=== PATIENT | male | born 1985 | race African-American/Black ===

== ENCOUNTER 2024-06-02 12:11 | Emergency (ER) | payer OTHER, SELFPAY ==
[2024-06-02 12:13] VITALS: BP 135/80; PULSE 83; RESP 18; TEMP 37; O2SAT 98; BMI 37.7
--- NOTE | 2024-06-02 12:19 | ED.SKABFB ---
HPI - Skin/Abscess/Foreign Bdy General Chief complaint: Skin/Abscess/Foreign Body Stated complaint: R leg pain abscess Time Seen by Provider: 06/02/24 14:06 Related Data Previous Rx's ?Medication ?Instructions ?Recorded amoxicillin 875 mg-potassium 1 tab PO BID #14 tabs 06/02/24 clavulanate 125 mg tablet Allergies Allergy/AdvReac Type Severity Reaction Status Date / Time aspirin [ASA] Allergy Unknown Verified 06/02/24 12:19 PMFSH Social History Social History Smoked in Last 30 Days: No Use of substances other than those prescribed or required for medical reasons: No Advance Directives: No Advance Directives Information Provided: Yes Do you have a plan to hurt others: No Plan Physical Exam Vital Signs: Vital Signs: Last Vital Signs Temp 98.6 F 06/02/24 14:31 Pulse 85 06/02/24 14:31 Resp 18 06/02/24 14:31 BP 142/77 H 06/02/24 14:31 Pulse Ox 97 06/02/24 14:31 O2 Del Method Room Air 06/02/24 14:31 BMI result Body Mass Index 37.7 Course Course Course Narrative: This is a Rapid Medical Examination (RME) performed by Diane Almanza PA-C in triage. Full HPI, ROS, assessment and treatment plan per primary provider in the Main ED. Hx: 38 yo male hx perianal abscess here for suspected recurrence of abscess x6 days. had abscess drained approx 5-6 yrs ago w/ improvement. reports the abscess returned 6 days ago. unsure if it is draining. no fever, chills. PE/vitals: uncomfortable appearing. difficulty sitting down d/t pain. area not examined d/t privacy concerns. Plan: screening labs, further eval in back Discharge Plan Discharge Clinical Impression: Abscess, rectum Patient Disposition: Home, Self-Care Instructions: Rectal Abscess (ED) Additional Instructions: WE HAVE CALLED A PRESCRIPTION FOR YOU FOR ANTIBIOTIC TO THE PHARMACY IN [facility]. FOLLOW-UP TOMORROW WITH DR. NIETO CALL THE OFFICE TOMORROW MORNING HE WILL SEE YOU TOMORROW Prescriptions: New amoxicillin-pot clavulanate 875-125 mg tablet 1 tab PO BID Qty: 14 0RF Referrals: Pedro Nieto MD [Physician] - 1 day Print Language: Citizen [place]
--- NOTE | 2024-06-02 14:14 | ED_ITS ---
HPI - General Adult General Chief complaint: Skin/Abscess/Foreign Body Stated complaint: R leg pain abscess Time Seen by Provider: 06/02/24 14:06 Source: patient Mode of arrival: ambulatory History of Present Illness HPI narrative: This is a 38 years old patient presented to the emergency department complaining of abscess in the rectal area. Onset (ago): day(s) (4) Location: buttocks Radiation: non-radiation Severity: moderate Quality: burning Pain Consistency: constant Relieving factors: none Exacerbating factors: none Related Data Previous Rx's ?Medication ?Instructions ?Recorded amoxicillin 875 mg-potassium 1 tab PO BID #14 tabs 06/02/24 clavulanate 125 mg tablet Allergies Allergy/AdvReac Type Severity Reaction Status Date / Time aspirin [ASA] Allergy Unknown Verified 06/02/24 12:19 Review of Systems Constitutional: Constitutional: Reports no additional constitutional complaints Cardiovascular: Cardiovascular: Reports no additional cardiovascular complaints Gastrointestinal: Gastrointestinal: Reports no additional gastrointestinal complaints PMFSH Social History Social History Smoked in Last 30 Days: No Use of substances other than those prescribed or required for medical reasons: No Advance Directives: No Advance Directives Information Provided: Yes Do you have a plan to hurt others: No Plan Physical Exam ED Vital Signs: Vital Signs - 24 hr 06/02/24 12:13 06/02/24 14:31 Temperature 98.6 F 98.6 F Pulse Rate 83 85 Respiratory Rate 18 18 Blood Pressure 135/80 142/77 H Pulse Oximetry 98 97 Oxygen Delivery Method Room Air Room Air BMI result Body Mass Index 37.7 Not acute distress Const General: cooperative Nutritional Appearance: average body habitus Orientation/consciousness: patient oriented x3 Limitations: no limitations HENMT Head: Yes normal to inspection Face and sinus: Yes normal facial exam Mouth: Normal oral and palatal mucosa present Throat: Yes posterior oropharynx normal Neck Neck: Yes normal visual inspection Chest Chest palpation & inspection: normal inspection of the chest Resp Effort & Inspection: normal respiratory effort Cardio Jugular venous distension: no JVD Rate: regular rate Rhythm: regular rhythm GI Other: soft non tender Percussion: Yes normal to percussion Rectal Exam - Male: Yes other (There is an area of tenderness and fluctuance in right perianal area) Skin General skin exam: no rashes or lesions noted Neuro General: patient oriented x3 Course Reevaluation(s) Reevaluation #1: I&D PERFORMED BY ME UNDER LOCAL ANESTHESIA LARGE AMOUNT OF PUS OBTAINED Time: 15:07 Reevaluation #2: I DISCUSSED THE CASE WITH THE SURGEON DR. NIETO WE WILL SEE THE PATIENT TOMORROW FOR FOLLOW-UP Time: 15:38 Procedures Abscess I/D Site: other (RECTAL AREA) Side (if applicable): right Local Anesthetic: lidocaine 1% Amount of anesthesia used (mL): 5 Technique: incised with blade and ultrasound guided Amount of fluid expressed (mL): 40 Sent for culture/gram staining?: Yes Irrigation: Yes Packing used?: iodoform Complications: other (NONE) Medical Decision Making Medical Decision Making MDM Narrative: PATIENT PRESENTED WITH A PERIRECTAL ABSCESS DISCUSSED I AND D PATIENT WANTS TO WILL ADD WITH THE I AND D RISKS AND BENEFITS DISCUSSED CONSENT FOR THE I AND D Differential Diagnosis Differential Diagnoses: The differential diagnosis associated with the presentation includes RECTAL ABSCESS/CYST Consult Healthcare Provider Management of the patient was discussed with: Prepared Foods Supervisor DR NIETO Prescription Management I considered prescription management with: Antibiotic Discharge Plan Discharge Clinical Impression: Abscess, rectum Patient Disposition: Home, Self-Care Instructions: Rectal Abscess (ED) Additional Instructions: WE HAVE CALLED A PRESCRIPTION FOR YOU FOR ANTIBIOTIC TO THE PHARMACY IN [facility]. FOLLOW-UP TOMORROW WITH DR. NIETO CALL THE OFFICE TOMORROW MORNING HE WILL SEE YOU TOMORROW Prescriptions: New amoxicillin-pot clavulanate 875-125 mg tablet 1 tab PO BID Qty: 14 0RF Referrals: Pedro Nieto MD [Physician] - 1 day Print Language: Moz[place]ican
[2024-06-02 14:31] VITALS: BP 142/77; PULSE 85; RESP 18; TEMP 37; O2SAT 97
--- NOTE | 2024-06-02 14:41 | PC.NURSE ---
Medication given to MD at bedside. MD to give medication during procedure.
--- NOTE | 2024-06-02 14:52 | PC.NURSE ---
Per d, pt. does not need labs that were previously ordered.
--- NOTE | 2024-06-02 15:44 | PC.NURSE ---
Dressing applied to pt's bottom per MD.
[2024-06-02] MEDS: Lidocaine HCl 1 % MPF 5 ML VIAL INFILTRATI (15:51)
[2024-06-02 15:52] VITALS: BP 142/77; PULSE 88; RESP 18; TEMP 37; O2SAT 97
[2024-06-02 15:54] LABS: MANUAL DIFF FLAG NO
[2024-06-02 16:10] LABS: Basophils Percent Auto 0.3 % (0-2); Eosinophils Absolute Auto 0.1 X10*3/uL (0.0-0.4); Eosinophils Percent Auto 1.1 % (0-4); Hematocrit 36.7 % (42.0-52.0); Hemoglobin 12.2 g/dl (14.0-18.0); Imm Gran Abs Auto 0.04 X10*3/uL (0.00-0.03); Imm Gran Pct Auto 0.4 % (0.0-0.4); Lymphocytes Absolute Auto 2.5 X10*3/uL (1.2-4.9); Lymphocytes Percent Auto 21.9 % (20-40); Mean Corpuscular HGB Conc 33.2 g/dl (31.0-36.0); Mean Corpuscular Hemoglobin 27.9 pg (27.0-33.0); Mean Corpuscular Volume 83.8 fL (80.0-98.0); Mean Platelet Volume 9.3 fL (9.4-12.4); Monocytes Percent Auto 8.5 % (2-11); Neutrophils Absolute Auto 7.7 x10*3/uL (2.0-8.3); Neutrophils Percent Auto 67.8 % (45-73); Platelet Count 354 X10*3/uL (160-400); Red Blood Count 4.38 X10*6/uL (4.60-5.80); Red Cell Distribution Width 12.7 % (11.0-16.0); White Blood Count 11.3 X10*3/uL (4.8-10.8)
[2024-06-02 16:11] LABS: Anion Gap 12 (12-20); Blood Urea Nitrogen 13 mg/dL (9-16); Calcium 9.1 mg/dL (8.4-10.2); Carbon Dioxide 24 mmol/L (22-29); Chloride 106 mmol/L (96-108); Creatinine Clr Calc Pharmacy 184.2; Estimated Glomerular Filt Rate > 60; Glucose Random 86 mg/dL (60-115); Potassium 3.9 mmol/L (3.3-5.1); Sodium 138 mmol/L (135-145)
== END 2024-06-02 15:54 | disposition home or self-care (01) ==
PROVIDERS: Physician Assistant Medical; Emergency Provider Emergency Medicine
DX: K61.1 Rectal abscess (principal)
CPT/HCPCS: 10060; 36415; 80048; 85025; 87070; 87077; 87186; 87205; 99284; J2003

== ENCOUNTER 2024-06-06 08:37 | Outpatient (AMB) | payer OTHER, SELFPAY ==
--- NOTE | 2024-06-06 08:45 | MHC.OFFVIS ---
Vital Signs 06/06/24 08:52 Height 6 ft Weight 277 lb 12.519 oz BMI 37.7 Respiration 16 Intake Visit Reasons: painful cyst leg Intake Note: Patient is seen in office for evaluation of a painful abscess of the buttock. Pt c/o onset for a week, went to the ED and was given antbx, redness, discharge, uncomfortable, had the same issue 5 yrs, Retail Sales Advisor Required: No Accompanied by: Family/Other Allergies aspirin [ASA] Allergy (Verified 06/06/24 08:50) Unknown HPI Comments Details: The patient is a 38-year-old male presenting with a wound check following incision and drainage of a rectal abscess. Initial symptoms commenced approximately a week prior to visiting the emergency department, characterized by significant discomfort and a sensation of pressure. The patient identified no acute changes in bowel habits but chronic gastrointestinal symptoms of incomplete evacuation have persisted, potentially related to underlying hypomotility. An earlier similar episode resolved spontaneously with home remedies. Despite receiving incision and drainage, the patient reports residual induration with slight discharge. The packing was reportedly dislodged unintentionally during showering. Cultures taken post-procedure indicated Escherichia coli, responsive to broad antibiotic coverage including ampicillin and sulfamethoxazole-trimethoprim. Concurrently, pre-diabetes was diagnosed a week prior but monitoring and management have not begun. They deny systemic manifestations such as fever and chills. The symptoms have diminished since the ER visit with no recurrence of severe pain or dizziness. [facility] Social History Alcohol intake: current Patient Tobacco Use Status: Current everyday Tobacco user Review of Systems Const All systems reviewed & are unremarkable except as noted in HPI and below Physical Exam Vital Signs: Last Vital Signs Resp 16 06/06/24 08:52 BMI result Body Mass Index 37.7 Const General: cooperative and no acute distress Nutritional Appearance: well nourished Orientation/consciousness: patient oriented x3 Limitations: no limitations HEENT Head: Yes normocephalic and Yes atraumatic Ears: hearing grossly normal bilaterally Resp Effort & Inspection: normal respiratory effort, no audible wheezes, no cough and no respiratory distress Cardio Jugular venous distension: no JVD GI Inspection: Yes normal to inspection Back/Spine/Pelvis Other: Perirectal examination reveals area of inflammation in the left buttock adjacent to the anal verge. No erythema, fluctuance, or tenderness is elicited. No evidence of a fistula. A small amount of discharge noted on his dressing. A clean dressing was applied. Skin Other: Warm, dry, no rash Neuro General: patient oriented x3 Extrem General: Yes no clubbing, cyanosis or edema Assessment & Plan Assessment & Plan (1) Abscess, rectum: Code(s): K61.1 - Rectal abscess Category: Medical Plan The patient will monitor for abscess resolution with the anticipation that healing continues naturally, though follow-up in one month is recommended. Warm soaks and cleanliness are to be maintained. The E. coli infection sensitivity supports existing antibiotics, thought to address this common condition effectively. The pre-diabetes state highlights a need for lifestyle changes with primary care oversight. Lastly, gastrointestinal disturbances were reviewed; however, detailed management was not outlined today, pending ongoing observation and reporting. Patient was informed and verbally consented to the use of an ambient scribe for clinic note documentation during this visit. Patient Instructions: - Continue warm sitz baths and maintain good hygiene after defecation. - Monitor the site for increased drainage or signs of infection, and contact if symptoms worsen. - Follow prescribed antibiotics as discussed to address identified bacterial strain. - Plan to follow up in one month or sooner if the condition does not improve. - Pursue dietary modifications for pre-diabetes management and arrange follow-up with your primary care physician. - Report any new symptoms, including fever or escalated discomfort, promptly. Coding Level of Care Code New Pt Level 4 (07207) Diagnoses Abscess, rectum K61.1
[2024-06-06 08:52] VITALS: RESP 16; BMI 37.7
--- OUTSIDE RECORDS SUMMARY | 2024-06-06 09:10 | XMS_ITS | Data Portability ---
Author Organization [facility] [id number] Address [address] [place] [address] Assessment No assessment recorded. Plan of Treatment Reminders Order Date Submit Date Provider Last Modified By Organization Details Last Modified Time Details Appointments None record ed. Lab None record ed. Referral None record ed. Procedures None record ed. Surgeries None record ed. Imaging None record ed. Medication Orders None record ed. Patient TargetsNo targets recorded. Patient InstructionsNo instructions recorded. Reason for Referral None Reported. Procedures Surgical History Date Name Laterality Status Provider Name and Address Organization Details Recorded Time OC-UDS Send Out Template DOT completed PETE Gramajo [facility] 08/05/2022 16:48:10 Imaging Results None recorded. Procedure Notes None recorded. Medical Equipment None Reported. Vitals None Recorded Social History None recorded. Functional Status None recorded. Mental Status None recorded. Family History Nothing Reported. Medical History No medical history recorded. Past Encounters Encounter ID Performer Location Encounter Start Date Encounter Closed Date Diagnosis/Indication Diagnosis SNOMED-CT Code Diagnosis ICD10 Code Diagnosis Note [id number] [address] [place] [address] 04/09/2021 13:35:03 04/09/2021 14:38:07 [id number] [address] [place] [address] 03/03/2021 13:54:57 03/03/2021 15:11:43 [id number] [address] [place] [address] 03/18/2017 12:48:48 03/18/2017 13:09:30 [id number] Herminio Vidal NP [address] [facility] [address] [place] [address] 08/05/2022 16:19:52 08/05/2022 16:54:28 History and physical examination, occupation [id number] Z02.1 Health Concerns Section Related Observation LastModified by Organization Detai ls LastModified Time None Recorded Concern Status LastModified by Organization Details LastModified Time None Recorded Advance Directives Directive None Recorded Payers Encounter Date Sequence Insurance Name Policy Number Policy Kwon Covered Member ID Kwon Member ID Guarantor Name 08/05/2022 [employer] JOSE Adame
== END 2024-06-06 09:06 | disposition home or self-care (01) ==
PROVIDERS: Visit Provider Surgery
DX: K61.1 Rectal abscess (principal)
CPT/HCPCS: 99204